=== PATIENT | female | born 1955 | race Caucasian/White ===

== ENCOUNTER 2023-06-03 09:53 | Emergency (ER) | payer OTHER, SELFPAY ==
[2023-06-03] VITALS (15 sets, daily range): BP systolic 107–144; BP diastolic 53–81; PULSE 63–74; RESP 14–23; TEMP 36.6; O2SAT 94–99; BMI 32.4
--- NOTE | 2023-06-03 10:00 | DI.RAD.S_ITS ---
PROCEDURE: XR CHEST 1V INDICATIONS: chest pain TECHNIQUE: One view of the chest was acquired. COMPARISON: CR, XR CHEST 1VW (PORTABLE), 05/02/2017, 11:42. FINDINGS: Surgical changes and devices: None. Lungs and pleura: Lungs are clear. No pleural effusions or pneumothorax. Mediastinum: Mediastinal contours appear normal. Heart size is normal. Bones and chest wall: No suspicious bony lesions. Overlying soft tissues appear unremarkable. IMPRESSION: Portable chest within normal limits for age. Dictated by: Ana Laura Camarillo M.D. on 06/03/2023 at 10:30 Approved by: Ana Laura Camarillo M.D. on 06/03/2023 at 10:30
[2023-06-03] MEDS: SODIUM CHLORIDE 0.9% 1,000 ML 1000 ML IV (11:05)
[2023-06-03 11:08] LABS: Add Manual Diff / Slide Review NO; Basophils Absolute Auto 100 /uL (0-100); Eosinophils Absolute Auto 200 /uL (0-450); Eosinophils Percent Auto 3.1 % (2-4); Hematocrit 38.1 % (36-46); Lymphocytes Absolute Auto 1800 /uL (1100-4500); Lymphocytes Percent Auto 35.3 % (25-40); Mean Corpuscular Hemoglobin 30.5 PG (26-34); Mean Corpuscular Volume 89.7 fL (80-100); Monocytes Absolute Auto 400 /uL (0-900); Monocytes Percent Auto 8.5 % (3-14); Neutrophils Absolute Auto 2700 /uL (1500-7000); Neutrophils Percent Auto 52.1 % (50-75); Platelet Count 251 X10^3/uL (150-400); Red Blood Cell Count 4.25 X10^6/uL (4.0-5.2); Red Cell Distribution Width 13.3 % (11.6-14.8); White Blood Cell Count 5.2 X10^3/uL (4.5-11.0)
[2023-06-03 11:13] LABS: INR 0.9 (0.9-1.3); Prothrombin Time 10.8 SECONDS (10.1-12.7)
[2023-06-03 11:16] LABS: PTT Partial Thromboplastin Tim 30 SECONDS (26-36)
[2023-06-03 11:19] LABS: Alanine Aminotransferase 19 IU/L (<35); Albumin 3.9 g/dL (3.5-5.0); Albumin Globulin Ratio 1.4 (1.0-2.8); Alkaline Phosphatase 40 U/L (38-126); Aspartate Aminotransferase 29 IU/L (14-36); BUN Creatinine Ratio 33.3 (6-22); Bilirubin Total 0.3 mg/dL (0.2-1.3); Blood Urea Nitrogen 19 mg/dL (7-17); Calcium 8.9 mg/dL (8.4-10.2); Carbon Dioxide 24 mmol/L (22-32); Chloride 107 mmol/L (98-107); Creatine Kinase 117 U/L (30-135); Estimated Glomerular Filt Rate > 60 mL/min (>60); Globulin 2.8 g/dL (1.7-4.1); Glucose 101 mg/dL (80-110); HEMOLYSIS < 15 (0-50); Lipase 97 U/L (23-300); Sodium 137 mmol/L (137-145); Total Protein 6.7 g/dL (6.3-8.2)
[2023-06-03 11:26] LABS: NT-proBNP (BNP-Adult 18+) 63 pg/mL (<125)
[2023-06-03 11:27] LABS: Appearance Urine UA CLEAR; Bilirubin Urine UA NEGATIVE (NEGATIVE); Color Urine UA YELLOW; Glucose Urine UA NEGATIVE (Negative); Ketones Urine UA NEGATIVE (NEGATIVE); Leukocyte Esterase Urine UA NEGATIVE (NEGATIVE); Nitrite Urine UA NEGATIVE (Negative); Occult Blood Urine UA NEGATIVE (Negative); Protein Urine UA NEGATIVE (Negative); Specific Gravity Urine UA <=1.005 (1.000-1.035); Urobilinogen Urine UA 0.2 E.U./dL (0.2)
[2023-06-03 11:29] LABS: Troponin I < 0.012 ng/mL (0.01-0.034)
[2023-06-03 11:30] LABS: pH Urine UA 5.5 (4.5-8.0)
[2023-06-03 11:36] LABS: Bacteria Urine None Seen; Culture Indicated Urine Cult Not Indicated; RBC Urine None Seen (0-5/HPF); Squamous Epithelial Cell Urine 1-5 /HPF (0-5/HPF); WBC Urine None Seen (0-5/HPF)
--- NOTE | 2023-06-03 13:56 | ED_ITS ---
HPI - Arrhythmia/Palpitations General Chief Complaint: Arrhythmia/Palpitations Stated Complaint: sent by [facility] braxton AFIB Time Seen by Provider: 06/03/23 11:02 Source: patient Mode of arrival: Ambulatory Limitations: no limitations History of Present Illness HPI narrative: This is a 67-year-old female history of mitral valve repair in 2011, prior ablation in 2016 presents with complaint of palpitations and concern for atrial flutter or fib. Patient states she did have an episode of atrial flutter well hospitalized during this. She states lately she is been noticing a skipped beat sometimes every 3rd or 4th beat sometimes farther apart sometimes not at all. She is noticing it mostly at nighttime when she is in bed. She states it keeps her awake. She denies symptoms currently, no chest pain, no shortness of breath, no persistently long or persistently irregular heartbeat. No syncope or passing out, no diaphoresis, no nausea no vomiting, no diarrhea, no black or bloody stools. No swelling of her extremities. She states she has been having insomnia. She notes that she had a thyroid medication and had a 2nd thyroid supplement added to it she stopped supplement 2 weeks ago. 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 She would follow up with lung function testing which she states went very well. Her primary care is Jen at [facility]. Related Data Allergies Allergy/AdvReac Type Severity Reaction Status Date / Time No Known Drug Allergies Allergy Verified 06/03/23 10:00 Review of Systems Review of Systems ROS Unobtainable: All systems reviewed & are unremarkable except as noted in HPI and below Patient History Social History Smoking Status: Unknown if ever smoked Smoking Status: Unknown if ever smoked alcohol intake frequency: holidays/special occasions only Substance Use Type: does not use Exam Narrative Exam Narrative: GENERAL: Alert and oriented x three, well-appearing female in no acute distress. HEENT: Head normocephalic, atraumatic, EOMI, pupils reactive, face symmetric, moist mucous membranes NECK: Supple, full range of motion CARDIOVASCULAR: Regular rate and rhythm without murmurs, rubs or gallops. No JVD. No swelling bilateral lower extremities. RESPIRATORY: Breath sounds equal bilaterally, no wheezes rales or rhonchi. No tachypnea or accessory muscle use. ABDOMEN: Soft, nontender. Normoactive bowel sounds all 4 quadrants. No guarding or rebound, rigidity, no mass : No CVA tenderness EXTREMITIES: Normal range of motion, no clubbing or edema. Neurovascularly intact NEUROLOGICAL: Cranial nerves II through XII grossly intact. Moving all extremities SKIN: Warm, dry, no petechiae, no rashes or lesions. Initial Vital Signs Initial Vital Signs: Vital Signs Temperature 97.9 F 06/03/23 09:54 Pulse Rate 73 06/03/23 09:54 Respiratory Rate 14 06/03/23 09:54 Blood Pressure 144/69 H 06/03/23 09:54 Pulse Oximetry 98 06/03/23 09:54 Oxygen Delivery Method Room Air 06/03/23 09:54 Course Orders Ordered: ED Orders 06/03/23 10:00 XR chest 1V Stat EKG-12 Lead Stat 06/03/23 10:52 BNP [NT-proBNP (BNP-Adult 18+)] Stat Complete Blood Count AUTO DIFF Stat Comprehensive Metabolic Panel Stat Lipase Stat Magnesium Stat PTT Partial Thromboplastin Dashawn Stat Prothrombin Time INR Stat Troponin & CK Cardiac Panel Stat 06/03/23 11:08 Urinalysis and Microscopic Stat Discontinued Medications Aspirin (Aspirin 81 Mg Chew Tab) 324 mg PO NOW ONE Stop: 06/03/23 10:01 Last Admin: 06/03/23 11:18 Dose: Not Given Documented By: RAY Sodium Chloride (Normal Saline 0.9%) 1,000 mls @ 1,000 mls/hr IV BOLUS ONE Stop: 06/03/23 12:02 Last Infusion: 06/03/23 12:21 Dose: 0 mls/hr Documented By: RAY(2) Admin: 06/03/23 11:05 Dose: 1,000 mls/hr Documented By: RAY Vital Signs Vital signs: Vital Signs - 8 hr 06/03/23 09:54 06/03/23 09:57 06/03/23 09:57 Temperature 97.9 F Pulse Rate 73 69 Respiratory Rate 14 Blood Pressure 144/69 H 144/69 H Pulse Oximetry 98 97 Oxygen Delivery Method Room Air 06/03/23 10:00 06/03/23 10:00 06/03/23 10:30 Temperature Pulse Rate 72 Respiratory Rate 18 Blood Pressure 117/58 L 109/59 L Pulse Oximetry 97 Oxygen Delivery Method 06/03/23 10:30 06/03/23 10:46 06/03/23 10:46 Temperature Pulse Rate 66 74 Respiratory Rate 18 16 Blood Pressure 107/56 L Pulse Oximetry 94 97 Oxygen Delivery Method 06/03/23 11:08 06/03/23 11:09 06/03/23 11:09 Temperature Pulse Rate 66 67 Respiratory Rate 15 18 Blood Pressure 130/70 Pulse Oximetry 99 96 Oxygen Delivery Method 06/03/23 11:30 06/03/23 11:30 06/03/23 12:00 Temperature Pulse Rate 63 Respiratory Rate 16 Blood Pressure 110/64 118/66 Pulse Oximetry 96 Oxygen Delivery Method 06/03/23 12:00 06/03/23 12:28 06/03/23 12:28 Temperature Pulse Rate 69 65 Respiratory Rate 17 16 Blood Pressure 110/65 Pulse Oximetry 98 98 Oxygen Delivery Method 06/03/23 12:30 06/03/23 12:30 06/03/23 13:00 Temperature Pulse Rate 63 Respiratory Rate 16 Blood Pressure 128/60 132/73 Pulse Oximetry 98 Oxygen Delivery Method 06/03/23 13:00 06/03/23 13:30 06/03/23 13:30 Temperature Pulse Rate 70 71 Respiratory Rate 20 16 Blood Pressure 120/53 L Pulse Oximetry 97 96 Oxygen Delivery Method 06/03/23 14:00 06/03/23 14:00 06/03/23 14:22 Temperature Pulse Rate 74 73 Respiratory Rate 23 Blood Pressure 110/81 109/59 L Pulse Oximetry 96 96 Oxygen Delivery Method Room Air MDM - Arrhythmia/Palpitations Lab Data 06/03/23 10:52 06/03/23 10:52 Labs: Lab Results 06/03/23 06/03/23 06/03/23 Range/Units 10:52 10:52 10:52 WBC 5.2 (4.5-11.0) X10^3/uL RBC 4.25 (4.0-5.2) X10^6/uL Hgb 13.0 (12.0-16.0) g/dL Hct 38.1 (36-46) % MCV 89.7 (80-100) fL MCH 30.5 (26-34) PG MCHC 34.0 (30-36) % RDW 13.3 (11.6-14.8) % Plt Count 251 (150-400) X10^3/uL Neut % (Auto) 52.1 (50-75) % Lymph % (Auto) 35.3 (25-40) % Sutton % (Auto) 8.5 (3-14) % Eos % (Auto) 3.1 (2-4) % Baso % (Auto) 1.0 (0-2) % Neut # (Auto) 2700 (2109-1819) /uL Lymph # (Auto) 1800 (5291-8805) /uL Sutton # (Auto) 400 (0-900) /uL Eos # (Auto) 200 (0-450) /uL Baso # (Auto) 100 (0-100) /uL PT 10.8 (10.1-12.7) SECONDS INR 0.9 (0.9-1.3) APTT 30 (26-36) SECONDS Sodium 137 (137-145) mmol/L Potassium 4.0 (3.4-5.1) mmol/L Chloride 107 (98-107) mmol/L Carbon Dioxide 24 (22-32) mmol/L BUN 19 H (7-17) mg/dL Creatinine 0.57 (0.52-1.04) mg/dL Estimated GFR > 60 (>60) mL/min BUN/Creatinine Ratio 33.3 H (6-22) Glucose 101 (80-110) mg/dL Calcium 8.9 (8.4-10.2) mg/dL Magnesium 2.0 (1.6-2.3) mg/dL Total Bilirubin 0.3 (0.2-1.3) mg/dL AST 29 (14-36) IU/L ALT 19 (<35) IU/L Alkaline Phosphatase 40 (38-126) U/L Total Creatine Kinase 117 (30-135) U/L Troponin I < 0.012 (0.01-0.034) ng/mL NT-Pro-B Natriuret Pep (<125) pg/mL Total Protein 6.7 (6.3-8.2) g/dL Albumin 3.9 (3.5-5.0) g/dL Globulin 2.8 (1.7-4.1) g/dL Albumin/Globulin Ratio 1.4 (1.0-2.8) Lipase 97 (23-300) U/L Urine Color Urine Appearance Urine pH (4.5-8.0) Ur Specific Holbrook (1.000-1.035) Urine Protein (Negative) Urine Glucose (UA) (Negative) g/dL Urine Ketones (NEGATIVE) Urine Occult Blood (Negative) Urine Nitrate (Negative) Urine Bilirubin (NEGATIVE) Urine Urobilinogen (0.2) E.U./dL Ur Leukocyte Esterase (NEGATIVE) Urine RBC (0-5/HPF) Urine WBC (0-5/HPF) Ur Squamous Epith Cells (0-5/HPF) Urine Bacteria (None) Ur Culture Indicated? 06/03/23 06/03/23 Range/Units 10:52 11:08 WBC (4.5-11.0) X10^3/uL RBC (4.0-5.2) X10^6/uL Hgb (12.0-16.0) g/dL Hct (36-46) % MCV (80-100) fL MCH (26-34) PG MCHC (30-36) % RDW (11.6-14.8) % Plt Count (150-400) X10^3/uL Neut % (Auto) (50-75) % Lymph % (Auto) (25-40) % Sutton % (Auto) (3-14) % Eos % (Auto) (2-4) % Baso % (Auto) (0-2) % Neut # (Auto) (5184-3730) /uL Lymph # (Auto) (2517-9478) /uL Sutton # (Auto) (0-900) /uL Eos # (Auto) (0-450) /uL Baso # (Auto) (0-100) /uL PT (10.1-12.7) SECONDS INR (0.9-1.3) APTT (26-36) SECONDS Sodium (137-145) mmol/L Potassium (3.4-5.1) mmol/L Chloride (98-107) mmol/L Carbon Dioxide (22-32) mmol/L BUN (7-17) mg/dL Creatinine (0.52-1.04) mg/dL Estimated GFR (>60) mL/min BUN/Creatinine Ratio (6-22) Glucose (80-110) mg/dL Calcium (8.4-10.2) mg/dL Magnesium (1.6-2.3) mg/dL Total Bilirubin (0.2-1.3) mg/dL AST (14-36) IU/L ALT (<35) IU/L Alkaline Phosphatase (38-126) U/L Total Creatine Kinase (30-135) U/L Troponin I (0.01-0.034) ng/mL NT-Pro-B Natriuret Pep 63 (<125) pg/mL Total Protein (6.3-8.2) g/dL Albumin (3.5-5.0) g/dL Globulin (1.7-4.1) g/dL Albumin/Globulin Ratio (1.0-2.8) Lipase (23-300) U/L Urine Color Yellow Urine Appearance Clear Urine pH 5.5 (4.5-8.0) Ur Specific Holbrook <=1.005 (1.000-1.035) Urine Protein Negative (Negative) Urine Glucose (UA) Negative (Negative) g/dL Urine Ketones Negative (NEGATIVE) Urine Occult Blood Negative (Negative) Urine Nitrate Negative (Negative) Urine Bilirubin Negative (NEGATIVE) Urine Urobilinogen 0.2 (0.2) E.U./dL Ur Leukocyte Esterase Negative (NEGATIVE) Urine RBC None seen (0-5/HPF) Urine WBC None seen (0-5/HPF) Ur Squamous Epith Cells 1-5 /hpf (0-5/HPF) Urine Bacteria None seen (None) Ur Culture Indicated? Cult not indicated Imaging Data Chest x-ray: Radiologist's Impresson: [address] [address] XRay Report Signed Patient: Janell Ontiveros MR#: [id number] : 1955 Acct:[id number] Age/Sex: 67 / F Date of Service: 06/03/23 Loc: ED Accession Number: [id number] ?? Procedure: XR chest 1V Ordering Provider: Briana Welch D.O. PROCEDURE:? XR CHEST 1V ? INDICATIONS:? chest pain ? TECHNIQUE:? One view of the chest was acquired.? ? COMPARISON:? CR, XR CHEST 1VW (PORTABLE), 05/02/2017, 11:42. ? FINDINGS:? ? Surgical changes and devices:? None.? ? Lungs and pleura:? Lungs are clear.? No pleural effusions or pneumothorax.? ? Mediastinum:? Mediastinal contours appear normal.? Heart size is normal.? ? Bones and chest wall:? No suspicious bony lesions.? Overlying soft tissues appear unremarkable.? ? ? IMPRESSION:? Portable chest within normal limits for age. ? ? Dictated by: Ana Laura Camarillo M.D. on 06/03/2023 at 10:30 ? ? Approved by: Ana Laura Camarillo M.D. on 06/03/2023 at 10:30?? ECG Data Attestation: I personally reviewed and interpreted this ECG as follows: Prior ECG tracings: not available for review Interpretation: Sinus rhythm with first-degree AV block. Rate of 60 8p are 214 QRS 84 QTC of 410. Patient has PVC, no other acute ST elevation depression. No priors. MDM Narrative Medical decision making narrative: 67-year-old female with history of mitral valve repair, she developed an atrial flutter and had ablation in 2017. She occasionally has palpitations but skipped beats frequently at nighttime she does not appreciate during the day. She did have PVC here on EKG, no arrhythmias otherwise noted on telemetry. CBC, CMP do not show acute changes than BUN of 19, chest x-ray is negative, troponins negative. Potassium is 4.0 patient's electrolytes with Mag of 2.0 on lab work. Discussed today's findings with patient, would recommend follow up with Holter/ZIO patch. Return precautions. Patient notes she is stopped alcohol some time ago last couple weeks. She does drink coffee each morning so we discussed holding this and making sure she is hydrating regularly as BUN slightly elevated. Patient has primary care as well as a cardiac team that she can follow with. Discussed need for return precautions and and probably benefit from Holter/ZIO patch. Discharge Plan Departure Patient Disposition: Home Clinical Impression: Palpitations Instructions: DI for Palpitations Activity Restrictions/Additional Instructions: Please follow-up with your physician or Cardiology team for recheck, discussed with your physician about Holter monitor or ZIO patch if you are having persistent palpitations. Continue with your current plan with your medications. I would continue to avoid alcohol, avoid caffeine and see if this improves her symptoms at all. Please return for new or worsening symptoms, chest pain, shortness of breath, li ghtheadedness or passing out, increasing swelling of extremities, persistently irregular or fast heart rate or other new or concerning changes. Referrals: Miscellaneous,Doctor, MD [Primary Care Provider] - Stand Alone Forms: Patient Portal/API
== END 2023-06-03 14:24 | disposition home or self-care (01) ==
PROVIDERS: Emergency Provider Emergency Medicine
DX: R00.2 Palpitations (principal); R07.9 Chest pain, unspecified; I44.0 Atrioventricular block, first degree; I49.3 Ventricular premature depolarization
CPT/HCPCS: 36415; 71045; 80053; 81001; 82550; 83690; 83735; 83880; 84484; 85025; 85610; 85730; 93005; 93010; 99284

== ENCOUNTER → 2024-02-12 13:46 | Outpatient (CLI) | payer OTHER, SELFPAY ==
--- NOTE | 2024-02-12 13:49 | DI.RAD.S_ITS ---
PROCEDURE: XR LUMBAR SPINE MIN 4V INDICATIONS: BACK PAIN/LEFT HIP PAIN TECHNIQUE: 5 views of the lumbar spine were acquired, including bilateral oblique views. COMPARISON: None. FINDINGS: Bones: Convex right thoracolumbar scoliosis. Vertebral body height and alignment is otherwise maintained. Disc space narrowing noted in the mid lumbar spine. Hypertrophic facet joints present mid to lower lumbar spine. No evidence of fracture or traumatic malalignment Soft tissues: Overlying bowel gas pattern is normal. No suspicious soft tissue calcifications. Oblique images: No pars defects. IMPRESSION: Degenerative disc disease, arthropathy and thoracolumbar dextroscoliosis Approved by: Carlos Connolly M.D. on 02/12/2024 at 15:27
--- NOTE | 2024-02-12 13:49 | DI.RAD.S_ITS ---
PROCEDURE: XR HIP W PEL IF DONE JAZMIN MIN 4V INDICATIONS: LEFT HIP PAIN TECHNIQUE: AP pelvis with lateral view(s) of the bilateral hip(s). COMPARISON: None. FINDINGS: Bones: No fractures or dislocations. Pelvic ring appears intact. No suspicious bony lesions. Moderate left hip joint space narrowing with subchondral sclerosis and small subchondral cysts. Mild right hip joint space narrowing. No femoral head remodeling. Surgical clips project over the right inguinal canal. Pelvic ring intact. Soft tissues: The visualized bowel gas pattern is normal. No suspicious soft tissue calcifications. IMPRESSION: Moderate left and mild right hip osteoarthritis Approved by: Carlos Connolly M.D. on 02/12/2024 at 15:28
== END ==
PROVIDERS: PCP Internal Medicine; Referring Provider Physical Medicine & Rehabilitation; Visit Provider Physical Medicine & Rehabilitation
DX: M16.0 Bilateral primary osteoarthritis of hip (principal); M51.36 Other intervertebral disc degeneration, lumbar region; M47.816 Spondylosis without myelopathy or radiculopathy, lumbar region; M41.9 Scoliosis, unspecified; M25.552 Pain in left hip; M54.9 Dorsalgia, unspecified
CPT/HCPCS: 72110; 73522

== ENCOUNTER → 2024-02-13 07:21 | Outpatient (CLI) | payer OTHER, SELFPAY ==
[2024-02-13 08:30] LABS: Add Manual Diff / Slide Review NO; Basophils Absolute Auto 0 /uL (0-100); Basophils Percent Auto 0.1 % (0-2); Eosinophils Absolute Auto 0 /uL (0-450); Hematocrit 41.7 % (36-46); Hemoglobin 13.8 g/dL (12.0-16.0); Lymphocytes Absolute Auto 800 /uL (1100-4500); Lymphocytes Percent Auto 10.5 % (25-40); Mean Corpuscular HGB Conc 33.1 % (30-36); Mean Corpuscular Hemoglobin 30.3 PG (26-34); Mean Corpuscular Volume 91.4 fL (80-100); Monocytes Absolute Auto 200 /uL (0-900); Monocytes Percent Auto 2.7 % (3-14); Neutrophils Absolute Auto 6900 /uL (1500-7000); Neutrophils Percent Auto 86.7 % (50-75); Platelet Count 263 X10^3/uL (150-400); Red Blood Cell Count 4.56 X10^6/uL (4.0-5.2); Red Cell Distribution Width 13.3 % (11.6-14.8)
[2024-02-13 14:26] LABS: Alanine Aminotransferase 17 IU/L (<35); Albumin 4.4 g/dL (3.5-5.0); Albumin Globulin Ratio 1.6 (1.0-2.8); Alkaline Phosphatase 54 U/L (38-126); Aspartate Aminotransferase 31 IU/L (14-36); BUN Creatinine Ratio 34.6 (6-22); Bilirubin Total 0.4 mg/dL (0.2-1.3); Blood Urea Nitrogen 18 mg/dL (7-17); C-Reactive Protein Quant < 0.5 mg/dL (<1.0); Carbon Dioxide 22 mmol/L (22-32); Chloride 106 mmol/L (98-107); Cholesterol 229 mg/dL (140-199); Estimated Glomerular Filt Rate > 60 mL/min (>60); Globulin 2.7 g/dL (1.7-4.1); Glucose 122 mg/dL (80-110); HDL Cholesterol 73 mg/dL (40-60); HEMOLYSIS < 15 (0-50); LDL Cholesterol Calculated 145 mg/dL (<100); Potassium 4.3 mmol/L (3.4-5.1); Sodium 136 mmol/L (137-145); Total Protein 7.1 g/dL (6.3-8.2); Triglycerides 55 mg/dL (35-150)
[2024-02-13 14:28] LABS: Hemoglobin A1C% w Est Avg Glu 5.2 % (4.0-6.0)
[2024-02-13 16:13] LABS: Thyroid Stimulating Hormone 0.284 uIU/mL (0.47-4.68)
[2024-02-13 16:44] LABS: Progesterone, Total < 0.08 ng/mL
[2024-02-13 16:48] LABS: Free T3, Triiodothyronine Free 3.82 pg/mL (2.77-5.27); Free T4, Direct Thyroxine 0.75 ng/dL (0.78-2.19)
[2024-02-14 08:17] LABS: Apolipoprotein B 107 mg/dL (<90)
== END ==
PROVIDERS: PCP Internal Medicine; Referring Provider Naturopath; Visit Provider Naturopath
DX: E03.9 Hypothyroidism, unspecified (principal); R79.89 Other specified abnormal findings of blood chemistry; E78.00 Pure hypercholesterolemia, unspecified; I65.23 Occlusion and stenosis of bilateral carotid arteries
CPT/HCPCS: 36415; 80053; 80061; 82172; 83036; 84144; 84439; 84443; 84481; 85025; 86140

== ENCOUNTER → 2024-05-12 11:38 | Outpatient (CLI) | payer OTHER, SELFPAY ==
--- NOTE | 2024-05-12 11:40 | DI.RAD.S_ITS ---
PROCEDURE: XR THORACIC SPINE 3V INDICATIONS: RIB PAIN TECHNIQUE: 3 views of the thoracic spine were acquired. COMPARISON: None. FINDINGS: Bones: No fractures or dislocations. No suspicious bony lesions. 12 pairs of ribs are noted, and appear intact where visualized. There is multilevel intervertebral disc height loss with degenerative endplate changes and marginal spurring. Soft tissues: No paravertebral stripe thickening. IMPRESSION: Mild multilevel degenerative changes of the thoracic spine. No acute osseous abnormalities. Dictated by: Woody Zee M.D. on 05/12/2024 at 14:57 Approved by: Woody Zee M.D. on 05/12/2024 at 14:58
== END ==
PROVIDERS: PCP Internal Medicine; Referring Provider Physical Medicine & Rehabilitation; Visit Provider Physical Medicine & Rehabilitation
DX: M47.814 Spondylosis without myelopathy or radiculopathy, thoracic region (principal); R07.81 Pleurodynia
CPT/HCPCS: 72072

== ENCOUNTER → 2024-06-18 08:06 | Outpatient (CLI) | payer OTHER, SELFPAY ==
--- NOTE | 2024-06-18 08:09 | DI.RAD.S_ITS ---
PROCEDURE: XR KNEE LT 3V INDICATIONS: left knee degenerative joint disease TECHNIQUE: 3 views of the knee were acquired. COMPARISON: None. FINDINGS: Moderate degenerate changes of the left knee with joint space narrowing and osteophytes in the medial greater than patellofemoral greater than lateral compartments. No radiographic evidence of displaced fracture, dislocation, or knee joint effusion or high attenuation soft tissue foreign body. IMPRESSION: Moderate degenerate changes of the left knee. If symptoms persist or worsen, MRI could be performed. Dictated by: Michael Andrade M.D. on 06/18/2024 at 14:01 Approved by: Michael Andrade M.D. on 06/18/2024 at 14:03
[2024-06-18 08:57] LABS: Add Manual Diff / Slide Review NO; Basophils Absolute Auto 0 /uL (0-100); Basophils Percent Auto 0.8 % (0-2); Eosinophils Absolute Auto 100 /uL (0-450); Eosinophils Percent Auto 3.2 % (2-4); Hematocrit 41.4 % (36-46); Hemoglobin 13.8 g/dL (12.0-16.0); Lymphocytes Absolute Auto 1500 /uL (1100-4500); Lymphocytes Percent Auto 33.3 % (25-40); Mean Corpuscular HGB Conc 33.4 % (30-36); Mean Corpuscular Hemoglobin 30.5 PG (26-34); Mean Corpuscular Volume 91.3 fL (80-100); Monocytes Absolute Auto 500 /uL (0-900); Monocytes Percent Auto 10.8 % (3-14); Neutrophils Absolute Auto 2300 /uL (1500-7000); Neutrophils Percent Auto 51.9 % (50-75); Platelet Count 229 X10^3/uL (150-400); Red Blood Cell Count 4.53 X10^6/uL (4.0-5.2); Red Cell Distribution Width 13.3 % (11.6-14.8); White Blood Cell Count 4.5 X10^3/uL (4.5-11.0)
[2024-06-18 09:23] LABS: HEMOLYSIS < 15 (0-50); Iron 90 ug/dL (37-170)
[2024-06-18 09:24] LABS: Alanine Aminotransferase 17 IU/L (<35); Albumin Globulin Ratio 1.7 (1.0-2.8); Alkaline Phosphatase 49 U/L (38-126); Amylase 59 U/L (30-110); Aspartate Aminotransferase 27 IU/L (14-36); BUN Creatinine Ratio 13.7 (6-22); Bilirubin Total 0.5 mg/dL (0.2-1.3); Blood Urea Nitrogen 7 mg/dL (7-17); C-Reactive Protein Quant < 0.5 mg/dL (<1.0); Calcium 9.3 mg/dL (8.4-10.2); Carbon Dioxide 25 mmol/L (22-32); Chloride 100 mmol/L (98-107); Cholesterol 259 mg/dL (140-199); Estimated Glomerular Filt Rate > 60 mL/min (>60); Gamma Glutamyl Transpeptidase 10 U/L (12-43); Globulin 2.3 g/dL (1.7-4.1); Glucose 94 mg/dL (80-110); HDL Cholesterol 83 mg/dL (40-60); HEMOLYSIS < 15 (0-50); LDL Cholesterol Calculated 163 mg/dL (<100); Lipase 303 U/L (23-300); Potassium 4.7 mmol/L (3.4-5.1); Sodium 130 mmol/L (137-145); Total Protein 6.3 g/dL (6.3-8.2); Triglycerides 63 mg/dL (35-150); Uric Acid 3.6 mg/dL (2.5-6.2)
[2024-06-18 09:33] LABS: Percent Iron Saturation 36 % (15-50); Total Iron Binding Capacity 250 ug/dL (265-497); Transferrin 203 mg/dL (206-381)
[2024-06-18 09:34] LABS: Hemoglobin A1C% w Est Avg Glu 5.2 % (4.0-6.0)
[2024-06-18 09:37] LABS: Vitamin D 25 Hydroxy (D3) 81.5 ng/mL (30.0-100.0)
[2024-06-18 09:46] LABS: Free T3, Triiodothyronine Free 4.11 pg/mL (2.77-5.27); Free T4, Direct Thyroxine 0.92 ng/dL (0.78-2.19)
[2024-06-18 10:00] LABS: Thyroid Stimulating Hormone 0.686 uIU/mL (0.47-4.68)
[2024-06-18 10:02] LABS: Ferritin 56 ng/mL (11-264)
[2024-06-19 07:40] LABS: Apolipoprotein B 112 mg/dL (<90)
== END ==
PROVIDERS: PCP Internal Medicine; Referring Provider Naturopath; Visit Provider Naturopath
DX: R06.02 Shortness of breath (principal); R79.89 Other specified abnormal findings of blood chemistry; E78.00 Pure hypercholesterolemia, unspecified; E03.9 Hypothyroidism, unspecified; G47.00 Insomnia, unspecified; M17.12 Unilateral primary osteoarthritis, left knee; I65.23 Occlusion and stenosis of bilateral carotid arteries; R14.0 Abdominal distension (gaseous); R68.82 Decreased libido
CPT/HCPCS: 36415; 73562; 80053; 80061; 82150; 82172; 82306; 82728; 82977; 83036; 83540; 83550; 83690; 84439; 84443; 84481; 84550; 85025; 86140

== ENCOUNTER 2024-08-17 13:55 | Outpatient (CLI) | payer OTHER, SELFPAY ==
[2024-08-17] VITALS (8 sets, daily range): BP systolic 120–149; BP diastolic 53–77; PULSE 61–74; RESP 16–20; TEMP 37.2; O2SAT 96–99
--- NOTE | 2024-08-17 13:55 | DI.RAD.S_ITS ---
PROCEDURE: PAIN L/S TRANSFORAMINAL INJECT INDICATIONS: left L4/5 TFESI COMPARISON: None. FINDINGS: Fluoroscopic spot filming was performed to verify placement of spinal needles at the left L4-L5 level(s), as labeled on the films. Appropriate location(s) of the needle tip(s) was confirmed by injection of iodinated contrast. IMPRESSION: Intraoperative guidance provided. Dictated by: Bobby Rivera M.D. on 08/17/2024 at 23:38 Approved by: Bobby Rivera M.D. on 08/17/2024 at 23:39
[2024-08-17] MEDS: MIDAZOLAM 2 MG/2 ML VIAL IV (15:16)
[2024-08-17] MEDS: DEXAMETHASONE 10 MG/ML VIAL INJ (15:19)
[2024-08-17] MEDS: BUPIVACAINE 0.25% (PF) VIAL 2 ML INJ (15:19)
[2024-08-17] MEDS: BETAMETHASONE 30 MG/5 ML MDV 12 MG INJ (15:19)
[2024-08-17] MEDS: iopamidoL 15 ML VIAL 3 ML INJ (15:20)
--- NOTE | 2024-08-17 15:36 | P.PCN_ITS ---
Date/Time/Diagnoses Date of procedure: 08/17/24 Time of procedure: 15:36 Pre-procedure diagnosis: 1. FORAMINAL STENOSIS WITH LE SYMPTOMS Post-procedure diagnosis: same Procedure Notes Procedure: 1. FLUOROSCOPICALLY GUIDED CONTRAST CONTROLLED TRANSFORAMINAL EPIDURAL STEROID INJECTION - LEFT L4/5 Indications: Janell is referred by Dr. Li for treatment of Foraminal Stenosis with Left LE Symptoms Physician: Aniceto Fry Total Fluoroscopy time (seconds): 13 Total sedation minutes: 14 Complications: none Procedure in detail & Post-procedure care: FINDINGS Foraminal Nerve Root Compression secondary to disc disease and facet hypertrophy DESCRIPTION OF PROCEDURE Following review of allergy and review of potential side effects and complications, including, but not necessarily limited to, infection, allergic reaction, local tissue breakdown, stroke, temporary or permanent nerve injury, paralysis, and possible , the patient indicated that the patient understood and agreed to proceed. An informed consent document was signed by the patient, witnessed by a nurse, and placed in the patient's chart. Additionally, other treatment options including medications, modalities, and physical therapy were reviewed with the patient. After review of previous anaesthesic history and IV conscious sedation the patient was deemed safe to proceed with today?s procedure with IV conscious sedation as ASA class II designation. Safety time-out was performed to confirm patient ID, procedure to be performed and site of procedure. IV sedation was accomplished with a combination of 2mg of Versed administered by the RN after DO order, titrated to patient comfort during the course of the procedure while the patient remained responsive to all verbal commands In the prone position following sterile prep and drape of the lumbar region, the left L4/5 posterior neuroforamen was identified fluoroscopically. The skin was anesthetized via a 25-gauge 1.5-inch needle with 1% lidocaine solution. At this point, a 25-gauge 3.5-inch spinal needle was atraumatically introduced and advanced under fluoroscopic guidance through the posterior left L4/5 neuroforamen to approximately the anterior aspect of the canal. Depth was confirmed on lateral view. Following negative aspiration, injection of approximately 1.5 cc of Isovue 200 under live fluoroscopy in the AP view confirmed excellent flow along the nerve root, into the epidural space without vascular or intrathecal uptake observed Radiological data, including multiple fluoroscopic views of the lumbosacral spine, reveal a spinal needle at the left L4/5 posterior neuroforamen. Subsequent views show flow of contrast material flowing superiorly and inferiorly along the nerve root confirming epidural flow. Subsequently, a test dose of 1.5 cc of 1% lidocaine solution was administered and patient was observed for two minutes for signs or symptoms of complications, including abdominal pain, shortness of breath, bilateral upper or lower extremity weakness, nausea and vomiting, prior to steroid injection. At this point, a total of 2cc or 10mg of dexamethasone and 6mg of betamethasone was injected without incident. The procedure tolerated the procedure well without signs or symptoms of complications prior to transfer to the recovery area continued monitoring without incident. The patient was then transferred to the recovery area where they were observed for an appropriate time after the injection. The patient reported a VAS score of 7 prior to the procedure and a post- procedure VAS of 0. POST OP INSTRUCTIONS The patient was provided a Pain Log to continue to record their response to the target-specific procedure prior to follow-up visit with their referring physician. Additionally, specific post-injection care instructions and a contact number to our office were provided if concerns arise regarding possible complications associated with the procedure are suspected.
== END 2024-08-17 15:55 | disposition home or self-care (01) ==
PROVIDERS: PCP Internal Medicine; Referring Provider Physical Medicine & Rehabilitation; Visit Provider Physical Medicine & Rehabilitation
DX: M48.061 Spinal stenosis, lumbar region without neurogenic claudication (principal); M51.16 Intervertebral disc disorders with radiculopathy, lumbar region; M47.26 Other spondylosis with radiculopathy, lumbar region
CPT/HCPCS: 64483; 99152; J0702; J1100; J2250; J3490